=== PATIENT | male | born 1990 | race American Indian/Alaskan Native ===

== ENCOUNTER 2020-08-24 09:49 | Emergency (ER) | payer SELFPAY ==
[2020-08-24] MEDS ORDERED: ONDANSETRON 4 MG/2 ML INJ ONE (10:01)
[2020-08-24] MEDS ORDERED: HYDROmorphone 1 MG/1 ML INJ ONE (10:02)
[2020-08-24] MEDS ORDERED: HYDROmorphone 1 MG/1 ML INJ IV ONE ×2 (10:03→10:06)
[2020-08-24] MEDS ORDERED: ONDANSETRON 4 MG/2 ML INJ IV ONE (10:03)
[2020-08-24] MEDS ORDERED: TETANUS,DIPH,PERTUSS(ACELL) VACCINE 0.5 ML SYRINGE IM ONE (10:04)
[2020-08-24] MEDS ORDERED: TETANUS IMMUNE GLOBULIN IM ONE (10:04)
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
[2020-08-24] MEDS ORDERED: LACTATED RINGERS 1,000 ML IV ONE (10:19)
[2020-08-24] MEDS ORDERED: fentaNYL 100 MCG/2 ML INJ IV ONE ×2 (10:28→13:50)
[2020-08-24 13:24] VITALS: BP 141/66
== END 2020-08-24 14:00 | disposition other institution (70) ==
LOC: ED 09:49
DX: T22.012A Burn of unspecified degree of left forearm, initial encounter (principal); T31.0 Burns involving less than 10% of body surface; Z91.011 Allergy to milk products; Z98.890 Other specified postprocedural states; X58.XXXA Exposure to other specified factors, initial encounter
CPT/HCPCS: 96361; 96372; 96374; 96375; 96376; 99284; J1170; J1670; J2405; J3010; J7120